=== PATIENT | male | born 1995 | race American Indian/Alaskan Native ===

== ENCOUNTER 2017-04-21 09:35 | Outpatient (CLI) | payer OTHER ==
--- NOTE | 2017-04-21 09:53 | XRay Report ---
Right foot 3 views: History: Right foot pain. Findings: There is deformity noted of the articular surface of proximal phalanx of great toe adjacent to the first metatarsophalangeal joint. Margin appears sclerotic. No periosteal reaction. No soft tissue swelling. Impression: Findings suggestive of old fracture of the base of the proximal phalanx great toe right foot. Mild arthritic changes present secondary to injury cannot be excluded.
== END 2017-04-21 09:36 | disposition home or self-care (01) ==
LOC: SPVIMAG 09:35
DX: M19.071 Primary osteoarthritis, right ankle and foot (principal); M20.61 Acquired deformities of toe(s), unspecified, right foot